=== PATIENT | female | born 1985 | race Caucasian/White ===

== ENCOUNTER 2016-08-09 13:18 | Emergency (ER) | payer MEDICAID ==
[~2016-08-09] VITALS: Ht 160 cm; Wt 68.0 kg
[2016-08-09 13:26] VITALS: BP 131/90
--- NOTE | 2016-08-09 13:30 | NUR ---
PT STATES LEFT NECK PAIN RADIATING DOWN LEFT ARM FOR 3 DAYS. DENIES N/V/D; SKIN IS PINK/WARM/DRY; AAOX4 WITH EVEN AND STEADY GAIT; LUNGS CLEAR BL; HR EVEN AND REGULAR; PT DENIES ANY FEVER, CP, SOB, OR COUGH AT THIS TIME; PATIENT STATES PAIN OF 7/10 AT THIS TIME; VSS; PATIENT POSITIONED FOR COMFORT; HOB ELEVATED; BEDRAILS UP X2; BED DOWN. ER MD MADE AWARE OF PT STATUS.
--- NOTE | 2016-08-09 13:40 | NUR ---
PT LEFT FOR X RAY
--- NOTE | 2016-08-09 13:53 | NUR ---
PT BACK TO ER BED 5.
--- NOTE | 2016-08-09 14:05 | NUR ---
DR. MORGAN AT BEDSIDE TO ASSESS PT.
[2016-08-09 14:51] VITALS: BP 130/88
--- NOTE | 2016-08-09 14:52 | NUR ---
Patient discharged with v/s stable. Written and verbal after care instructions given and explained. Patient alert, oriented and verbalized understanding of instructions. Ambulatory with steady gait. All questions addressed prior to discharge. ID band removed. Patient advised to follow up with PMD. Rx of MOTRIN,TRAMADOL given. Patient educated on indication of medication including possible reaction and side effects. Opportunity to ask questions provided and answered.
== END 2016-08-09 14:52 | disposition home or self-care (01) ==
LOC: MED 13:23
DX: S16.1XXA Strain of muscle, fascia and tendon at neck level, initial encounter (principal); R03.0 Elevated blood-pressure reading, without diagnosis of hypertension; X58.XXXA Exposure to other specified factors, initial encounter; Y93.89 Activity, other specified; Y92.89 Other specified places as the place of occurrence of the external cause; Y99.8 Other external cause status

== ENCOUNTER 2022-03-23 08:58 | Emergency (ER) | payer MEDICAID ==
[~2022-03-23] VITALS: Ht 160 cm; Wt 71.2 kg
[2022-03-23 09:01] VITALS: BP 151/99
--- NOTE | 2022-03-23 09:10 | NUR ---
PT AMB TO BED 8.
[2022-03-23 10:51] VITALS: BP 121/72
--- NOTE | 2022-03-23 10:54 | NUR ---
Patient discharged with v/s stable. Written and verbal after care instructions given and explained. Patient verbalized understanding. Ambulatory with steady gait. All questions addressed prior to discharge. Advised to follow up with PMD.
== END 2022-03-23 10:54 | disposition home or self-care (01) ==
LOC: MED 08:58
DX: R10.9 Unspecified abdominal pain (principal); Z98.890 Other specified postprocedural states
CPT/HCPCS: 81025; 99284